=== PATIENT | female | born 1985 | race Caucasian/White ===

== ENCOUNTER 2018-04-13 11:32 | Day surgery (SDC) | payer BC ==
[~2018-04-13] VITALS: Ht 160 cm; Wt 59.0 kg
[~2018-04-13 11:32] MED LIST: ENDOCET 5-3251 EACH PO; ENDOMETRIN100 MG VG; ESTRACE2 MG PO; IBUPROFEN800 MG PO; PRENATAL TABLE1 EAC3 PO
[2018-04-13 11:57] LABS: BASOPHIL (%) 0.3 % (0-1); EOSINOPHIL (%) 0.7 % (0-5); EOSINOPHIL COUNT 0.1 K/uL (0-0.3); HEMATOCRIT 39.6 % (36.0-46.0); HEMOGLOBIN 14.1 G/DL (11.9-15.5); IMMATURE GRANULOCYTE (%) 0.3 % (0.0-0.7); LYMPHOCYTE (%) 22.5 % (15-42); LYMPHOCYTE COUNT 2.4 K/uL (1.0-2.8); MCH 31.3 PG (29.0-34.0); MCHC 35.6 G/DL (30.0-36.0); MONOCYTE (%) 5.6 % (3-12); MONOCYTE COUNT 0.6 K/uL (0-0.8); NEUTROPHIL (%) 70.6 % (45-76); NEUTROPHIL COUNT 7.6 K/uL (1.8-6.4); PLATELET COUNT 224 K/uL (156-360); RBC DIS.WIDTH-SD 38.7 % (39-53); WHITE BLOOD COUNT 10.7 K/uL (4.1-10.2)
[2018-04-13 12:10] VITALS: BP 111/76
[2018-04-13] MEDS ORDERED: MOTRIN800 MG PO (13:13)
[2018-04-13 16:10] VITALS: BP 116/87
[2018-04-13 17:05] VITALS: BP 103/59
== END 2018-04-13 17:10 | disposition home or self-care (01) ==
LOC: SDC 11:32
PROVIDERS: Obstetrics & Gynecology
PROC: 10D07Z8 Extraction of Products of Conception, Other, Via Natural or Artificial Opening (ICD-10-PCS; principal; 2018-04-13)
DX: O02.1 Missed abortion (principal); Z88.0 Allergy status to penicillin; Z3A.09 9 weeks gestation of pregnancy
CPT/HCPCS: 76801; 85025; 86850; 86900; 86901; 88305; J0131; J1100; J1170; J2250; J2405; J3010